=== PATIENT | male | born 1945 | race Caucasian/White ===

== ENCOUNTER → 2016-06-26 | Outpatient (CLI) | payer MEDICARE ==
[~2016-06-26] MED LIST: ALBU8.5H2 IH; ALBU8.5H4 IH; CPR500T PO; METH4TAB27 PO; METR500T PO; NO HOME MEDICATIONS; ONDA4TAB8 PO; PRED20TA PO; TRM50T PO
== END ==
LOC: EMS 15:15
DX: Z53.20 Procedure and treatment not carried out because of patient's decision for unspecified reasons (principal)